=== PATIENT | male | born 1965 | race African-American/Black ===

== ENCOUNTER 2021-02-21 02:20 | Emergency (ER) | payer MEDICAID ==
[~2021-02-21] VITALS: Ht 172.7 cm; Wt 70.0 kg
[2021-02-21] MEDS ORDERED: HYDROCODONE/ACETAMINOPHEN 5/325MG TABLET PO STA (02:52)
[2021-02-21 03:07] LABS: BASOPHILS % 0.4 % (0.0-2.0); EOSINOPHILS % 3.7 % (0.0-5.0); HEMATOCRIT. 37.4 % (42.0-52.0); HEMOGLOBIN. 12.6 g/dL (14.0-18.0); LYMPHOCYTES % 35.9 % (20.0-50.0); MEAN CORPUSCULAR HEMOGLOBIN 29.5 pg (28.0-32.0); MEAN CORPUSCULAR VOLUME 87.6 fL (80.0-94.0); MEAN PLATELET VOLUME 7.3 fl (7.4-10.4); MONOCYTES % 10.6 % (2.0-8.0); NEUTROPHILS % 49.4 % (40.0-76.0); PLATELET 226 x1000/uL (130-400); RED BLOOD CELL COUNT 4.27 mill/uL (4.7-6.1); RED CELL DISTRIBUTION WIDTH 12.9 % (11.6-14.6)
[2021-02-21 03:13] LABS: CHLORIDE 114 mEq/L (98-107)
[2021-02-21] MEDS ORDERED: T3 PO (04:57)
[2021-02-21 05:06] LABS: CLARITY URINE CLEAR (CLEAR); COLOR URINE YELLOW (YELLOW); KETONES URINE NEGATIVE (NEGATIVE); LEUKOCYTE ESTERASE URINE NEGATIVE (NEGATIVE); NITRITE URINE NEGATIVE (NEGATIVE); OCCULT BLOOD URINE 2+ (NEGATIVE); PROTEIN URINE TRACE (NEGATIVE); SPECIFIC GRAVITY URINE 1.019 (1.005-1.030)
[2021-02-21 05:25] VITALS: BP 124/84
[2021-02-21] MEDS ORDERED: KETOROLAC 30MG/ML VIAL IM ONE (05:30)
== END 2021-02-21 05:33 | disposition home or self-care (01) ==
LOC: ER 02:44
DX: K80.20 Calculus of gallbladder without cholecystitis without obstruction (principal); N20.0 Calculus of kidney; K42.9 Umbilical hernia without obstruction or gangrene; M51.37 Other intervertebral disc degeneration, lumbosacral region; Z98.890 Other specified postprocedural states; Z87.828 Personal history of other (healed) physical injury and trauma; K80.80 Other cholelithiasis without obstruction
CPT/HCPCS: 36415; 74176; 80053; 81003; 83690; 85025; 93005; 96372; 99285; J1885